=== PATIENT | female | born 1995 | race African-American/Black ===

== ENCOUNTER 2021-07-01 17:19 | Emergency (ER) | payer MEDICAID ==
[~2021-07-01] VITALS: Ht 175.3 cm; Wt 106.0 kg
[2021-07-01] MEDS ORDERED: SODIUM CHLORIDE 0.9% 1,000 ML IV ONE (19:00)
[2021-07-01 19:03] VITALS: BP 120/72
[2021-07-01 19:32] LABS: EOSINOPHILS % 1.2 % (0.0-5.0); HEMATOCRIT. 37.4 % (36.0-48.0); HEMOGLOBIN. 12.5 g/dL (12.0-16.0); LYMPHOCYTES % 23.2 % (20.0-50.0); MEAN CORPUSCULAR HEMOGLOBIN 24.8 pg (28.0-32.0); MEAN CORPUSCULAR VOLUME 74.5 fL (81.0-99.0); MEAN PLATELET VOLUME 8.6 fl (7.4-10.4); MONOCYTES % 8.4 % (2.0-8.0); NEUTROPHILS % 66.2 % (40.0-76.0); PLATELET 254 x1000/uL (130-400); RED BLOOD CELL COUNT 5.01 mill/uL (4.2-5.4); RED CELL DISTRIBUTION WIDTH 15.2 % (11.6-14.6)
[2021-07-01 19:38] LABS: CHLORIDE 108 mEq/L (98-107)
[2021-07-01 19:49] LABS: B-HCG QUANTITATIVE < 1 mIU/mL (<3)
== END 2021-07-01 22:54 | disposition home or self-care (01) ==
LOC: ER 17:19
DX: R55 Syncope and collapse (principal); Z98.890 Other specified postprocedural states
CPT/HCPCS: 36415; 71045; 80053; 84702; 85025; 86850; 86900; 86901; 93005; 96360; 99285; J7030